=== PATIENT | male | born 1980 | race Asian ===

== ENCOUNTER 2022-05-03 09:20 | Emergency (ER) | payer BC ==
[~2022-05-03] VITALS: Ht 170.2 cm; Wt 71.7 kg
[2022-05-03 09:25] VITALS: TEMP 98.2
[2022-05-03 10:34] VITALS: BP 124/74
== END 2022-05-03 10:35 | disposition home or self-care (01) ==
LOC: ED 09:20
DX: S90.32XA Contusion of left foot, initial encounter (principal); W20.8XXA Other cause of strike by thrown, projected or falling object, initial encounter; Y92.89 Other specified places as the place of occurrence of the external cause
CPT/HCPCS: 99283